=== PATIENT | female | born 1995 | race African-American/Black ===

== ENCOUNTER 2016-12-27 16:00 | Inpatient (IN) | payer BC, OTHER ==
[~2016-12-27] VITALS: Ht 170.2 cm; Wt 74.3 kg
[2016-12-27 16:44] LABS: Basophils # (auto) 0 uL; Basophils % (auto) 0.2 % (0.0-2.0); Eosinophils # (auto) 0 uL; Eosinophils % (auto) 0.1 % (0.0-7.0); Hematocrit 45.1 % (36.0-46.0); Hemoglobin 15.2 g/dL (12.2-16.2); Lymphocytes # (auto) 1.9 uL; Lymphocytes % (auto) 15.3 % (10.0-50.0); Mean Corpuscular Hemoglobin 28.5 pg (28.0-32.0); Mean Corpuscular Hgb Conc. 33.8 g/dL (32.0-36.0); Mean Corpuscular Volume 84.5 fL (80.0-100.0); Mean Platelet Volume 10.7 fL (7.4-10.4); Monocytes # (auto) 0.6 uL; Neutrophils # (auto) 9.8 uL; Neutrophils % (auto) 79.4 % (37.0-80.0); Platelet Count (auto) 233 10^3/uL (140-450); Red Cell Distribution Width 13.4 % (11.6-16.0); SUSPECT VIEW TRANSMISSION; White Blood Cell 12.4 10^3/uL (4.4-10.8)
[2016-12-27 17:02] LABS: Urine Blood TRACE /uL (Negative); Urine Color Yellow (Yellow); Urine Glucose Normal (Normal); Urine Mucus MANY (None Seen); Urine Nitrite Negative (Negative); Urine RBC 8 /hpf (0 - 4); Urine Squamous Epithelial Cell MOD /hpf (<5); Urine pH 6.5 (5.0-8.0)
[2016-12-27 17:03] LABS: Magnesium 2.1 mg/dL (1.6-2.6)
[2016-12-27 17:16] LABS: Albumin 4.1 g/dL (3.4-5.0); Calcium 9.5 mg/dL (8.5-10.1); Potassium 3.4 mmol/L (3.5-5.1)
[2016-12-27 17:17] LABS: Bilirubin, Total 0.3 mg/dL (0.2-1.0); Total Protein 8.2 g/dL (6.4-8.2)
[2016-12-27 17:34] LABS: Urine Ketone 2+ (Negative)
[2016-12-27 17:39] LABS: Urine Bilirubin Positive (Negative)
[2016-12-27] MEDS ORDERED: MORPHINE SULF INJ 2 MG/ML SYRINGE 1ML IV PRN (18:45)
[2016-12-27] MEDS ORDERED: NITROGLYCERIN 0.4 MG SL TAB SL PRN (18:45)
[2016-12-27] MEDS ORDERED: VANCOMYCIN PER PHARMACY 0 MG IV SCH (18:45)
[2016-12-27] MEDS: GENTAMICIN SULFATE 160 MG in D5W 5% 100 ML IV SCH (22:31)
[2016-12-27] MEDS: METOCLOPRAMIDE HCL 5MG/ml INJ 2ml VIAL IV PRN (22:45)
[2016-12-27 23:30] VITALS: BP 132/87
[2016-12-28] MEDS: VANCOMYCIN 1GM/250ML D5W 250 ML IV SCH ×3 (00:21→20:50)
[2016-12-28] MEDS: SODIUM CHLORIDE 0.9% 1,000 ML IV SCH ×5 (00:22→21:25)
[2016-12-28 04:59] VITALS: BP 131/73
[2016-12-28] MEDS ORDERED: GASTROGRAFIN 30 ML SOL ONE (07:08)
[2016-12-28 07:15] LABS: Basophils # (auto) 0 uL; Basophils % (auto) 0.5 % (0.0-2.0); Eosinophils # (auto) 0 uL; Eosinophils % (auto) 0.1 % (0.0-7.0); Hematocrit 42.5 % (36.0-46.0); Hemoglobin 14.1 g/dL (12.2-16.2); Lymphocytes # (auto) 1.9 uL; Lymphocytes % (auto) 18.2 % (10.0-50.0); Mean Corpuscular Hemoglobin 28.5 pg (28.0-32.0); Mean Corpuscular Hgb Conc. 33.2 g/dL (32.0-36.0); Mean Corpuscular Volume 85.8 fL (80.0-100.0); Mean Platelet Volume 11.7 fL (7.4-10.4); Monocytes % (auto) 9.8 % (0.0-12.0); Neutrophils # (auto) 7.6 uL; Neutrophils % (auto) 71.4 % (37.0-80.0); Platelet Count (auto) 199 10^3/uL (140-450); Red Cell Distribution Width 13.6 % (11.6-16.0); SUSPECT VIEW TRANSMISSION; White Blood Cell 10.6 10^3/uL (4.4-10.8)
[2016-12-28 07:16] LABS: BUN/Creatinine Ratio 10.6; Calcium 8.8 mg/dL (8.5-10.1); Potassium 3.4 mmol/L (3.5-5.1)
[2016-12-28] MEDS ORDERED: IOHEXOL 300 MG/ML 100ML BOTTLE IJ ONE (09:02)
[2016-12-28 09:16] VITALS: BP 125/76
[2016-12-28] MEDS ORDERED: PATIENTS OWN MEDICATION (GENTAMICIN 160 MG) IV SCH (10:00)
[2016-12-28 13:00] VITALS: BP 122/56
[2016-12-28 16:59] VITALS: BP 113/67
[2016-12-28] MEDS: METOCLOPRAMIDE HCL 5MG/ml INJ 2ml VIAL IV PRN (18:29)
[2016-12-28 22:00] VITALS: BP 103/57
[2016-12-28] MEDS: GENTAMICIN SULFATE 160 MG in D5W 5% 100 ML IV SCH (22:30)
[2016-12-29] VITALS (7 sets, daily range): BP systolic 108–110; BP diastolic 44–81
[2016-12-29] MEDS: SODIUM CHLORIDE 0.9% 1,000 ML IV SCH ×3 (04:21→17:51)
[2016-12-29 06:38] LABS: Calcium 8.4 mg/dL (8.5-10.1); Potassium 3.5 mmol/L (3.5-5.1)
[2016-12-29] MEDS: VANCOMYCIN 1GM/250ML D5W 250 ML IV SCH ×2 (08:14→20:45)
[2016-12-29] MEDS: METOCLOPRAMIDE HCL 5MG/ml INJ 2ml VIAL IV PRN ×2 (08:16→18:17)
[2016-12-29] MEDS: ACETAMINOPHEN 325 MG TAB PO PRN (18:19)
[2016-12-29] MEDS: GENTAMICIN SULFATE 160 MG in D5W 5% 100 ML IV SCH (23:12)
[2016-12-30] VITALS (7 sets, daily range): BP systolic 112–123; BP diastolic 63–81
[2016-12-30] MEDS: SODIUM CHLORIDE 0.9% 1,000 ML IV SCH ×3 (00:47→20:05)
[2016-12-30] MEDS: ACETAMINOPHEN 325 MG TAB PO PRN ×2 (01:39→11:34)
[2016-12-30 05:23] LABS: Basophils # (auto) 0 uL; Basophils % (auto) 0.3 % (0.0-2.0); Eosinophils # (auto) 0 uL; Eosinophils % (auto) 0.6 % (0.0-7.0); Hematocrit 40.4 % (36.0-46.0); Hemoglobin 13.4 g/dL (12.2-16.2); Lymphocytes # (auto) 2.2 uL; Lymphocytes % (auto) 26.5 % (10.0-50.0); Mean Corpuscular Hemoglobin 28.2 pg (28.0-32.0); Mean Corpuscular Hgb Conc. 33.2 g/dL (32.0-36.0); Mean Corpuscular Volume 84.9 fL (80.0-100.0); Mean Platelet Volume 10.9 fL (7.4-10.4); Monocytes # (auto) 0.8 uL; Monocytes % (auto) 9.2 % (0.0-12.0); Neutrophils # (auto) 5.2 uL; Neutrophils % (auto) 63.4 % (37.0-80.0); Platelet Count (auto) 187 10^3/uL (140-450); Red Cell Distribution Width 13.3 % (11.6-16.0); White Blood Cell 8.3 10^3/uL (4.4-10.8)
[2016-12-30 05:43] LABS: BUN/Creatinine Ratio 6.7; Calcium 8.3 mg/dL (8.5-10.1); Potassium 3.5 mmol/L (3.5-5.1)
[2016-12-30] MEDS: VANCOMYCIN 1GM/250ML D5W 250 ML IV SCH ×2 (08:27→20:20)
[2016-12-31 04:48] VITALS: BP 117/74
[2016-12-31] MEDS: SODIUM CHLORIDE 0.9% 1,000 ML IV SCH ×4 (05:57→23:45)
[2016-12-31] MEDS: VANCOMYCIN 1GM/250ML D5W 250 ML IV SCH ×2 (08:01→20:08)
[2016-12-31 09:00] VITALS: BP_SYST 103; BP_SYST 121; BP_DIAS 67; BP_DIAS 74
[2016-12-31 13:00] VITALS: BP 130/74
[2016-12-31 16:55] VITALS: BP 135/75
[2016-12-31 21:57] VITALS: BP 140/70
[2017-01-01 05:00] VITALS: BP 100/53
[2017-01-01] MEDS: SODIUM CHLORIDE 0.9% 1,000 ML IV SCH ×2 (06:34→12:07)
[2017-01-01] MEDS: VANCOMYCIN 1GM/250ML D5W 250 ML IV SCH (08:20)
[2017-01-01 09:00] VITALS: BP 124/82
[2017-01-01 13:00] VITALS: BP 128/68
[2017-01-01 16:02] VITALS: BP 128/68
[2017-01-01] MEDS ORDERED: SULF400T11 PO (16:27)
== END 2017-01-01 17:00 | disposition home or self-care (01) | DRG 871 ==
LOC: ER 16:05 → TELE-WESTW 16:06 → SUATTDRO 18:42 → WEST WING 12-28 03:48
PROVIDERS: ADMIT Emergency Medicine; ATTEND Internal Medicine Cardiovascular Disease
DX: A41.89 Other specified sepsis (principal); N15.1 Renal and perinephric abscess; N39.0 Urinary tract infection, site not specified; N20.0 Calculus of kidney; I10 Essential (primary) hypertension; E87.6 Hypokalemia
CPT/HCPCS: 36415; 71020; 74177; 78306; 80048; 80053; 80202; 81001; 81025; 83735; 84484; 85025; 87040; 93005; J7060

== ENCOUNTER → 2017-01-31 | Outpatient (CLI) | payer BC ==
[~2017-01-31] MED LIST: LEVOFLOXACIN 500 MG TAB ONE; LEVOFLOXACIN 500MG 100 ML IV ONE; ONDANSETRON HCL 4 MG/2 ML VIAL IV ONE; ONDANSETRON HCL 4 MG/2 ML VIAL ONE; SODIUM CHLORIDE 0.9% 500 ML IV ONE; SULF400T11 PO; cefTRIAXone 1GM/50ML D5W 50 ML IV ONE
[2017-01-31 16:40] VITALS: BP 108/60
[2017-01-31 18:35] VITALS: BP 124/83
== END | disposition home or self-care (01) ==
LOC: CHF HDHVI 16:44
PROVIDERS: ATTEND Internal Medicine Cardiovascular Disease
DX: E86.0 Dehydration (principal); R11.2 Nausea with vomiting, unspecified; I50.9 Heart failure, unspecified
CPT/HCPCS: 96365; 96367; 96375; G0463; J0696; J1642; J1956; J2405; 96360; 96374

== ENCOUNTER → 2017-02-01 | Outpatient (CLI) | payer BC ==
[~2017-02-01] MED LIST changes: +IOHEXOL 350 MG/ML 100ML IJ ONE; -LEVOFLOXACIN 500 MG TAB ONE; -LEVOFLOXACIN 500MG 100 ML IV ONE; -SODIUM CHLORIDE 0.9% 500 ML IV ONE; -cefTRIAXone 1GM/50ML D5W 50 ML IV ONE
[2017-02-01 09:00] VITALS: BP 116/70
[2017-02-01] MEDS: SODIUM CHLORIDE 0.9% 1,000 ML IV SCH (09:00)
[2017-02-01 09:21] LABS: HCG POC NEGATIVE (Negative)
[2017-02-01 12:22] LABS: Basophils # (auto) 0 uL; Basophils % (auto) 0.3 % (0.0-2.0); CONDITION Y; Eosinophils # (auto) 0 uL; Hematocrit 40.1 % (36.0-46.0); Hemoglobin 13.5 g/dL (12.2-16.2); Lymphocytes # (auto) 1.3 uL; Lymphocytes % (auto) 14.7 % (10.0-50.0); Mean Corpuscular Hemoglobin 28.5 pg (28.0-32.0); Mean Corpuscular Hgb Conc. 33.7 g/dL (32.0-36.0); Mean Corpuscular Volume 84.5 fL (80.0-100.0); Mean Platelet Volume 11.2 fL (7.4-10.4); Monocytes # (auto) 0.5 uL; Monocytes % (auto) 5.4 % (0.0-12.0); Neutrophils # (auto) 7.2 uL; Neutrophils % (auto) 79.6 % (37.0-80.0); Platelet Count (auto) 219 10^3/uL (140-450); Red Cell Distribution Width 13.9 % (11.6-16.0); SUSPECT SEE PRINTOUT
[2017-02-01 12:28] LABS: Urine Bilirubin Negative (Negative); Urine Blood Negative /uL (Negative); Urine Color Yellow (Yellow); Urine Glucose Normal (Normal); Urine Nitrite Negative (Negative); Urine Urobilinogen Normal (Negative)
[2017-02-01 12:29] LABS: Urine Ketone 4+ (Negative)
[2017-02-01 12:47] LABS: Bilirubin, Total 0.3 mg/dL (0.2-1.0); Calcium 9.2 mg/dL (8.5-10.1); Potassium 3.4 mmol/L (3.5-5.1); Total Protein 7.2 g/dL (6.4-8.2)
[2017-02-01 13:30] VITALS: BP 124/88
== END | disposition home or self-care (01) ==
LOC: Rad HDHVI 08:51
PROVIDERS: ATTEND Internal Medicine Cardiovascular Disease
DX: I10 Essential (primary) hypertension (principal); E03.9 Hypothyroidism, unspecified; D64.9 Anemia, unspecified; N39.0 Urinary tract infection, site not specified; E55.9 Vitamin D deficiency, unspecified
CPT/HCPCS: 36415; 74177; 80053; 81003; 82306; 82565; 84443; 85025; 87086; 96374; 96375; G0463; J2405; Q9967; 96366

== ENCOUNTER → 2017-02-07 | Outpatient (CLI) | payer BC ==
[~2017-02-07] MED LIST changes: -IOHEXOL 350 MG/ML 100ML IJ ONE; -ONDANSETRON HCL 4 MG/2 ML VIAL IV ONE; -ONDANSETRON HCL 4 MG/2 ML VIAL ONE
[2017-02-07 16:10] VITALS: BP 105/67
[2017-02-07 18:00] VITALS: BP 112/66
== END | disposition home or self-care (01) ==
LOC: CHF HDHVI 16:04
PROVIDERS: ATTEND Internal Medicine Cardiovascular Disease
DX: I50.9 Heart failure, unspecified (principal)
CPT/HCPCS: 96365; G0463; 96367

== ENCOUNTER → 2017-02-08 | Outpatient (CLI) | payer BC ==
[2017-02-08 09:00] VITALS: BP 113/83
== END | disposition home or self-care (01) ==
LOC: CHF HDHVI 07:50
PROVIDERS: ATTEND Internal Medicine Cardiovascular Disease
DX: I50.9 Heart failure, unspecified (principal)
CPT/HCPCS: 96365; G0463; 96361

== ENCOUNTER → 2017-03-04 | Outpatient (CLI) | payer BC ==
[2017-03-04 11:00] VITALS: BP 129/67
[2017-03-04 11:40] VITALS: BP 116/70
[2017-03-04 15:00] LABS: Basophils # (auto) 0 uL; Basophils % (auto) 0.5 % (0.0-2.0); CONDITION Y; Eosinophils # (auto) 0 uL; Eosinophils % (auto) 0.6 % (0.0-7.0); Hematocrit 39.3 % (36.0-46.0); Hemoglobin 13.2 g/dL (12.2-16.2); Lymphocytes # (auto) 1.7 uL; Lymphocytes % (auto) 31.4 % (10.0-50.0); Mean Corpuscular Hemoglobin 28.5 pg (28.0-32.0); Mean Corpuscular Hgb Conc. 33.6 g/dL (32.0-36.0); Mean Corpuscular Volume 84.9 fL (80.0-100.0); Mean Platelet Volume 11.1 fL (7.4-10.4); Monocytes # (auto) 0.4 uL; Monocytes % (auto) 7.7 % (0.0-12.0); Neutrophils # (auto) 3.2 uL; Neutrophils % (auto) 59.8 % (37.0-80.0); Platelet Count (auto) 220 10^3/uL (140-450); Red Cell Distribution Width 13.8 % (11.6-16.0); SUSPECT SEE PRINTOUT; White Blood Cell 5.3 10^3/uL (4.4-10.8)
[2017-03-04 15:16] LABS: BUN/Creatinine Ratio 12.8; Calcium 8.7 mg/dL (8.5-10.1); Potassium 3.2 mmol/L (3.5-5.1)
== END | disposition home or self-care (01) ==
LOC: CHF HDHVI 11:03
PROVIDERS: ATTEND Internal Medicine Cardiovascular Disease
DX: I10 Essential (primary) hypertension (principal); D64.9 Anemia, unspecified
CPT/HCPCS: 36415; 80048; 85025; G0463

== ENCOUNTER → 2017-04-03 | Outpatient (CLI) | payer BC ==
[~2017-04-03] MED LIST changes: +MVI in SODIUM CHLORIDE 0.9% 1,000 ML IVB ONE; +MVI in SODIUM CHLORIDE 0.9% 1,010 ML ONE; +ONDANSETRON HCL 4 MG/2 ML VIAL IV ONE; +ONDANSETRON HCL 4 MG/2 ML VIAL ONE
[2017-04-03 16:29] LABS: Albumin 4.4 g/dL (3.4-5.0); BUN/Creatinine Ratio 12.2; Basophils # (auto) 0 uL; Basophils % (auto) 0.3 % (0.0-2.0); CONDITION Y; Calcium 9.7 mg/dL (8.5-10.1); Eosinophils # (auto) 0 uL; Hematocrit 44.2 % (36.0-46.0); Hemoglobin 14.5 g/dL (12.2-16.2); Lymphocytes # (auto) 1.7 uL; Lymphocytes % (auto) 16.4 % (10.0-50.0); Magnesium 2.4 mg/dL (1.6-2.6); Mean Corpuscular Hemoglobin 28.4 pg (28.0-32.0); Mean Corpuscular Hgb Conc. 32.9 g/dL (32.0-36.0); Mean Corpuscular Volume 86.4 fL (80.0-100.0); Mean Platelet Volume 11.4 fL (7.4-10.4); Monocytes # (auto) 0.7 uL; Monocytes % (auto) 6.6 % (0.0-12.0); Neutrophils # (auto) 7.9 uL; Neutrophils % (auto) 76.7 % (37.0-80.0); Platelet Count (auto) 250 10^3/uL (140-450); Potassium 3.4 mmol/L (3.5-5.1); SUSPECT SEE PRINTOUT; White Blood Cell 10.4 10^3/uL (4.4-10.8)
[2017-04-03 16:31] LABS: Bilirubin, Total 0.3 mg/dL (0.2-1.0); Total Protein 8.1 g/dL (6.4-8.2)
[2017-04-03 17:42] VITALS: BP 109/65
== END | disposition home or self-care (01) ==
LOC: CHF HDHVI 14:09
PROVIDERS: ATTEND Internal Medicine Cardiovascular Disease
DX: I10 Essential (primary) hypertension (principal); E83.42 Hypomagnesemia; D64.9 Anemia, unspecified
CPT/HCPCS: 36415; 80053; 83735; 85025; 96365; 96366; 96375; G0463; J2405; J3411; J3475

== ENCOUNTER → 2017-06-10 | Outpatient (CLI) | payer BC ==
[~2017-06-10] MED LIST changes: -MVI in SODIUM CHLORIDE 0.9% 1,000 ML IVB ONE; -MVI in SODIUM CHLORIDE 0.9% 1,010 ML ONE; +PROMETHAZINE HCL 25 MG/ML 1ML IM ONE; +PROMETHAZINE HCL 25 MG/ML 1ML ONE; +SODIUM CHLORIDE 0.9% 1,000 ML IV ONE
[2017-06-10 16:30] LABS: Basophils # (auto) 0 uL; Basophils % (auto) 0.5 % (0.0-2.0); Eosinophils # (auto) 0 uL; Eosinophils % (auto) 0.3 % (0.0-7.0); Hematocrit 45.5 % (36.0-46.0); Hemoglobin 15.7 g/dL (12.2-16.2); Lymphocytes # (auto) 1.5 uL; Lymphocytes % (auto) 24.9 % (10.0-50.0); Mean Corpuscular Hemoglobin 29.1 pg (28.0-32.0); Mean Corpuscular Hgb Conc. 34.5 g/dL (32.0-36.0); Mean Corpuscular Volume 84.1 fL (80.0-100.0); Mean Platelet Volume 10.2 fL (6.9-10.8); Monocytes # (auto) 0.6 uL; Monocytes % (auto) 10.1 % (0.0-12.0); Neutrophils # (auto) 3.9 uL; Neutrophils % (auto) 64.2 % (37.0-80.0); Nucleated Red Blood Cells % 0.2 %; Platelet Count (auto) 219 10^3/uL (140-450); Red Cell Distribution Width 13.5 % (11.8-14.3)
[2017-06-10 16:35] LABS: Albumin 4.1 g/dL (3.4-5.0); Calcium 9.4 mg/dL (8.5-10.1); Magnesium 2.5 mg/dL (1.6-2.6); Potassium 3.4 mmol/L (3.5-5.1)
[2017-06-10 16:37] LABS: BUN/Creatinine Ratio 13.5
[2017-06-10 16:40] VITALS: BP 128/82
[2017-06-10 16:40] LABS: Bilirubin, Total 0.4 mg/dL (0.2-1.0); Total Protein 7.9 g/dL (6.4-8.2)
== END | disposition home or self-care (01) ==
LOC: CHF HDHVI 11:16
PROVIDERS: ATTEND Internal Medicine Cardiovascular Disease
DX: I50.9 Heart failure, unspecified (principal); I10 Essential (primary) hypertension; E83.42 Hypomagnesemia; D64.9 Anemia, unspecified
CPT/HCPCS: 36415; 80053; 83735; 85025; 96361; 96372; 96374; G0463; J2405; J2550; 96360; 96375

== ENCOUNTER → 2017-12-20 | Outpatient (CLI) | payer BC ==
[~2017-12-20] VITALS: Ht 30.5 cm; Wt 64.9 kg
[~2017-12-20] MED LIST changes: -PROMETHAZINE HCL 25 MG/ML 1ML IM ONE; -PROMETHAZINE HCL 25 MG/ML 1ML ONE
[2017-12-20 11:50] VITALS: BP 115/67
[2017-12-20 13:05] VITALS: BP 133/73
== END | disposition home or self-care (01) ==
LOC: CHF HDHVI 12:09
PROVIDERS: ATTEND Internal Medicine Cardiovascular Disease
DX: E86.0 Dehydration (principal); R11.2 Nausea with vomiting, unspecified; I11.0 Hypertensive heart disease with heart failure; I50.9 Heart failure, unspecified; E03.9 Hypothyroidism, unspecified
CPT/HCPCS: 96361; 96374; G0463; J2405; J7030; 96360; 96375

== ENCOUNTER → 2017-12-23 | Outpatient (CLI) | payer BC ==
[~2017-12-23] MED LIST changes: +MVI in SODIUM CHLORIDE 0.9% 1,000 ML IVB ONE; +MVI in SODIUM CHLORIDE 0.9% 1,010 ML ONE; -SODIUM CHLORIDE 0.9% 1,000 ML IV ONE
[2017-12-23 09:50] VITALS: BP_SYST 102; BP_SYST 113; BP_DIAS 67; BP_DIAS 70
[2017-12-23 12:55] VITALS: BP 104/67
== END | disposition home or self-care (01) ==
LOC: CHF HDHVI 09:43
PROVIDERS: ATTEND Internal Medicine Cardiovascular Disease
DX: E86.0 Dehydration (principal); R53.83 Other fatigue; R11.2 Nausea with vomiting, unspecified; I11.0 Hypertensive heart disease with heart failure; I50.9 Heart failure, unspecified; E03.9 Hypothyroidism, unspecified
CPT/HCPCS: 96365; 96366; 96375; G0463; J2405; J3411; J3475